=== PATIENT | female | born 1960 | race Caucasian/White ===

== ENCOUNTER 2021-03-24 16:12 | Emergency (ER) | payer BC ==
--- OUTSIDE RECORDS SUMMARY | 2021-03-24 16:15 | XMS REPORT | Continuity of Care Document ---
:1960 Author Organization [facility] t Address [address] [place] [address] [place] [id number] Care Team Providers Name Role Phone Unavailable Unavailable Unavailable Problems This patient has no known problems. Allergies, Adverse Reactions, Alerts This patient has no known allergies or adverse reactions. Medications Ordered Filled Start Stop Current Ordering Indication Dosage Frequency Signature Comments Components Source Medication Medication Date Date Medication? Clinician (SIG) Name Name Atorvastati Atorvastati 2018-0 Yes Georgina [address] [facility] Calcium n Calcium 2-20 [facility] Lexapro Lexapro Yes Georgina [address] [facility] Synthroid Synthroid Yes Georgina [address] [facility] on an [facility] empty [facility] stomach in l the [facility] morning ent [facility] Multivitami Multivitami Yes Georgina [address] [facility] n [facility] Alprazolam Alprazolam Yes Georgina [address] [facility] Effexor Effexor Yes Georgina not [facility] defined [facility] Calcium + D Calcium + D Yes Georgina not [facility] Acyclovir Acyclovir Yes Georgina [address] [facility] Loratadine Loratadine Yes Georgina [address] [facility] Sudafed Sudafed Yes Georgina [address] [facility] as needed [facility] Amoxicillin Amoxicillin Yes Georgina [address] [facility]Pot -Pot [facility] Immunizations Ordered Filled Immunization Date Status Comments Sour e Immunization Name Name TDAP > 7 TDAP > 7 2018-09-[address] [facility] 00:00:00 [facility] Procedures This patient has no known procedures. Encounters Start End Encounter Admission Attending Care Care Encounter Source Date/Time Date/Time Type Type Clinicians Facility Department ID 2020-07-20 2020-07-20 Outpatient [facility] [id number] [facility] 2020-07-12 2020-07-12 Out[facility] [id number] [facility] 2020-06-13 2020-06-13 [facility] [id number] [facility] 2020-05-31 2020-05-31 [facility] [id number] [facility] 2020-05-23 2020-05-23 [facility] [id number] [facility] 2020-05-17 2020-05-17 [facility] [id number] [facility] 2020-02-19 2020-02-19 [facility] [id number] [facility] 16[facility]40[facility]00 16:40:00 [facility] Medicine Outpati ent Clinics 2020-02-11 2020-02-11 [facility] [id number] [facility] 08[facility]16:00 08:16:00 [facility] Medicine Outpati ent Clinics 2019-10-08 2019-10-08 [facility] [id number] [facility] 09[facility]02:00 09:02:00 t [facility] Medicine Outpati ent Clinics 2019-04-23 2019-04-23 [facility] [id number] [facility] 15:00:00 15:00:00 [facility] Medicine Outpati ent Clinics 2018-11-10 2018-11-10 [facility] [id number] 14:57:00 14:57:00 t [facility] Medicine Medicine Outpati ent Clinics 2018-10-22 2018-10-22 [facility] [id number] [facility] 08:00[facility]00 08:00:00 [facility] Medicine Outpati ent Clinics 2018-09-25 2018-09-25 [facility] [id number] [facility] 14:48:00 14:48:00 t [facility] Medicine l Medicine Outpati ent Clinics 2018-09-09 2018-09-09 [facility] [id number] [facility] 09:00:00 09:00:00 [facility] Medicine Outpati ent Clinics 2018-04-25 2018-04-25 [facility] [id number] [facility] 08:45:00 08:45:00 t [facility] Medicine Medicine Outpati ent Clinics 2018-03-05 2018-03-05 [facility] [id number] [facility] 09:12:00 09:12:00 t [facility] Medicine Outpati ent Clinics 2018-03-03 2018-03-03 [facility] [id number] [facility] 11:19:00 11:19:00 [facility] Medicine Outpati ent Clinics 2018-02-24 2018-02-24 [facility] [id number] [facility] 10:45:00 10:45:00 [facility] Medicine Outpati ent Clinics Results This patient has no known results.
--- NOTE | 2021-03-24 18:15 | RAD REPORT ---
EXAM DESCRIPTION: RAD - Knee Right 3 View - 03/24/2021 6:08 pm CLINICAL HISTORY: Right knee pain status post injury FINDINGS: Mildly depressed fracture of the lateral tibial plateau. No dislocation 2.2 centimeter sclerotic density distal right femur could represent an enchondroma or infarct. Follow -up x-ray 3 months recommended to assess stability
[2021-03-24] MEDS ORDERED: MORPHINE 4 MG/ML SYR ONE (21:10)
[2021-03-24] MEDS ORDERED: ONDANSETRON 4 MG/2 ML VIAL ONE (21:10)
[2021-03-24] MEDS ORDERED: NA CHLORIDE 0.9% 500 ML ONE (21:10)
[2021-03-24] MEDS ORDERED: FENTANYL CITR 100 MCG/2 ML ONE ×2 (21:21→21:39)
--- NOTE | 2021-03-24 21:46 | RAD REPORT ---
EXAM DESCRIPTION: Veronica Sosa Cont03/24/2021 9:33 pm CLINICAL HISTORY: Right knee pain status post injury COMPARISON: March 24, 2021 x-ray TECHNIQUE: Computed axial tomography of the right knee was obtained with coronal and sagittal recons truction. All CT scans are performed using dose optimization technique as appropriate and may include automated exposure control or mA/KV adjustment according to patient size. FINDINGS: Mildly depressed fracture lateral tibial plateau. No dislocation Large hemarthrosis Mild lateral subluxation of the tibia on the femur 2.8 centimeter sclerotic density distal femur IMPRESSION: Mildly depressed fracture lateral tibial plateau 2.8 centimeter sclerotic density distal left femur may represent an enchondroma or infarct. Follow-up x-ray in 3 months recommended to assess stability
--- NOTE | 2021-03-24 22:17 | ER ---
Nurse's Notes [facility] Name: Guera Pineda Age: 61 yrs Sex: Female : 1960 Arrival Date: 03/24/2021 Time: 16:16 Bed DIS11 Private MD: Diagnosis: Right Knee Tibial Plateau Fracture Presentation: 03/24 17:03 Chief complaint: Patient states: missed a step this morning and fell. Pt c/o right knee aa5 pain, unable to bear weight. Coronavirus screen: At this time, the client does not indicate any symptoms associated with coronavirus-19. Ebola Screen: Patient negative for fever greater than or equal to 101.5 degrees Fahrenheit, and additional compatible Ebola Virus Disease symptoms. Initial Sepsis Screen: Does the patient meet any 2 criteria? No. Patient's initial sepsis screen is negative. Does the patient have a suspected source of infection? No. Patient's initial sepsis screen is negative. Risk Assessment: Do you want to hurt yourself or someone else? Patient reports no desire to harm self or others. Onset of symptoms was March 24, 2021. 17:03 Method Of Arrival: Wheelchair aa5 17:03 Acuity: HOLLIE 4 aa5 Historical: - Allergies: 17:02 No Known Allergies; aa5 - PMHx: 17:02 None; aa5 - PSHx: 17:02 left ankle; right wrist; Hemorrhoidectomy; tubal ligation; aa5 - Immunization history:: Client reports having NOT received the Covid vaccine. - Social history:: Smoking status: Patient reports the use of cigarette tobacco products, smokes one pack cigarettes per day. Screenin:00 Abuse screen: Denies threats or abuse. Nutritional screening: No deficits noted. em Tuberculosis screening: No symptoms or risk factors identified. Fall Risk None identified. Assessment: 20:55 General: Appears uncomfortable, Behavior is cooperative, restless. Pain: Complains of em pain in right knee. Neuro: Level of Consciousness is awake, alert, obeys commands, Oriented to person, place, time, situation, Appropriate for age. Cardiovascular: Capillary refill < 3 seconds Patient's skin is warm and dry. Respiratory: Airway is patent Respiratory effort is even, unlabored, Respiratory pattern is regular, symmetrical. Derm: Skin is intact, is healthy with good turgor, Skin is pink, warm \T\ dry. Musculoskeletal: Range of motion: limited in right knee Swelling present in right knee. 21:15 Reassessment: pain unchanged, provider notified Patient states symptoms have not em improved. 22:45 Reassessment: Patient appears in no apparent distress at this time. Patient and/or em family updated on plan of care and expected duration. Pain level reassessed. Patient is alert, oriented x 3, equal unlabored respirations, skin warm/dry/pink. Patient states feeling better. Patient states symptoms have improved. Vital Signs: 17:03 BP 110 / 66; Pulse 64; Resp 16 S; Temp 98.3(O); Pulse Ox 100% on R/A; Weight 79.38 kg aa5 (R); Height 4 ft. 11 in. (149.86 cm) (R); Pain 8/10; 21:00 BP 108 / 72; Pulse 56; Resp 18; Pulse Ox 100% on R/A; em 17:03 Body Mass Index 35.35 (79.38 kg, 149.86 cm) aa5 ED Course: 16:16 Patient arrived in ED. mr 17:03 Arm band placed on. aa5 17:04 Triage completed. aa5 18:08 Knee Right 3 View XRAY In Process Unspecified. EDMS 20:33 Frank Santos PA is PHCP. cp 20:33 Terri Weaver MD is Attending Physician. cp 20:44 Christian Harris, PARUL is Primary Nurse. em 20:55 Inserted saline lock: 22 gauge in left antecubital area, using aseptic technique. em 21:00 Patient has correct armband on for positive identification. em 22:14 Lebron Whitaker MD is Attending Physician. cp 22:15 Ruben South MD is Referral Physician. cp 22:45 No provider procedures requiring assistance completed. IV discontinued, intact, em bleeding controlled, No redness/swelling at site. Pressure dressing applied. Knee immobilizer applied on right knee. Administered Medications: 20:55 Drug: NS 0.9% 500 ml Route: IV; Rate: bolus; Site: left antecubital; em 22:50 Follow up: IV Status: Completed infusion; IV Intake: 500ml em 21:00 Drug: Zofran (Ondansetron) 4 mg Route: IVP; Site: left antecubital; em 21:15 Follow up: Response: No adverse reaction em 21:02 Not Given (Physician Discretion): morphine 4 mg IVP once; RASS on ADMIN: Combtv4, Very em Agttd3, Agttd2, Rstlss1, AlertClm0, Drwsy-1, Lt Sdtn-2, Mod Sdtn-3, Dp Sdtn-4, UnArsble-5 21:03 Drug: fentaNYL (PF) 50 mcg Route: IVP; Site: left antecubital; em 21:15 Follow up: Response: No adverse reaction; Pain is unchanged, physician notified em 21:16 Drug: fentaNYL (PF) 25 mcg Route: IVP; Site: left antecubital; em 22:05 Follow up: Response: No adverse reaction; No change in condition; Pain is unchanged, em physician notified 22:09 Drug: HYDROcodone-acetaminophen 10 mg-325 mg 1 tabs Route: PO; em 22:47 Follow up: Response: No adverse reaction; Marked relief of symptoms; Pain is decreased; em RASS: Alert and Calm (0) Intake: 22:50 IV: 500ml; Total: 500ml. em Outcome: 22:16 Discharge ordered by MD. cp 22:49 Discharged to home via wheelchair, with family. em 22:49 Condition: stable 22:49 Discharge instructions given to patient, family, Instructed on discharge instructions, follow up and referral plans. medication usage, Demonstrated understanding of instructions, follow-up care, medications, Prescriptions given X 2. 22:50 Patient left the ED. em Signatures: Dispatcher [employer] Domi Turpin Edgar, RN RN em Raine Kamara RN RN aa5 Frank Santos PA PA cp
--- NOTE | 2021-03-24 22:17 | EDPHYS ---
Physician Documentation [facility] Name: Guera Pineda Age: 61 yrs Sex: Female : 1960 Arrival Date: 03/24/2021 Time: 16:16 Bed DIS11 Private MD: ED Physician Lebron Whitaker HPI: 03/24 20:40 This 61 yrs old Female presents to ER via Wheelchair with complaints of Fall cp Injury. 20:40 The patient presents with decreased range of motion, an injury, swelling, tenderness. cp 20:40 The complaints affect the right knee. Context: The problem was sustained at home, cp resulted from the patient falling, down stairs, the patient is not able to bear weight, the patient is not able to ambulate. Onset: The symptoms/episode began/occurred this morning. Associated signs and symptoms: The patient has no apparent associated signs or symptoms. Details of fall: The patient fell from an upright position, while walking. Historical: - Allergies: 17:02 No Known Allergies; aa5 - PMHx: 17:02 None; aa5 - PSHx: 17:02 left ankle; right wrist; Hemorrhoidectomy; tubal ligation; aa5 - Immunization history:: Client reports having NOT received the Covid vaccine. - Social history:: Smoking status: Patient reports the use of cigarette tobacco products, smokes one pack cigarettes per day. ROS: 20:45 MS/extremity: Positive for injury or acute deformity, decreased range of motion, pain, cp swelling, tenderness, of the right knee. 20:45 Constitutional: Negative for body aches, chills, fever, poor PO intake. cp 20:45 Respiratory: Negative for cough, shortness of breath, wheezing. 20:45 Abdomen/GI: Negative for abdominal pain, nausea, vomiting, and diarrhea, constipation. 20:45 Neuro: Negative for altered mental status, headache, loss of consciousness, syncope, weakness. 20:45 Cardiovascular: Negative for chest pain, palpitations. cp 20:45 All other systems are negative. cp Exam: 20:50 Constitutional: The patient appears in no acute distress, alert, awake, cp non-diaphoretic, non-toxic, well developed, well nourished, in obvious pain, uncomfortable. 20:50 Head/Face: Normocephalic, atraumatic. cp 20:50 Eyes: Periorbital structures: appear normal, Conjunctiva: normal, no exudate, no injection, Sclera: no appreciated abnormality, Lids and lashes: appear normal, bilaterally. 20:50 Neck: C-spine: vertebral tenderness, is not appreciated, crepitus, is not appreciated, ROM/movement: is normal, is supple, without pain, no range of motions limitations. 20:50 Chest/axilla: Inspection: normal, Palpation: is normal, no crepitus, no tenderness. 20:50 Cardiovascular: Rate: normal, Rhythm: regular, Edema: is not appreciated. 20:50 Respiratory: the patient does not display signs of respiratory distress, Respirations: normal, no use of accessory muscles, no retractions, labored breathing, is not present, Breath sounds: are clear throughout, no decreased breath sounds, no stridor, no wheezing. 20:50 Abdomen/GI: Inspection: abdomen appears normal, Palpation: abdomen is soft and non-tender, in all quadrants. 20:50 Back: pain, is absent, ROM is normal, vertebral tenderness, is not appreciated. 20:50 Musculoskeletal/extremity: Extremities: grossly normal except: noted in the right knee: decreased ROM, pain, swelling, tenderness, ROM: limited passive range of motion due to pain, in the right knee, Perfusion: the extremity is normally perfused throughout, the right knee Severe pain noted. 20:50 Neuro: Orientation: to person, place \T\ time. Mentation: is normal. Vital Signs: 17:03 BP 110 / 66; Pulse 64; Resp 16 S; Temp 98.3(O); Pulse Ox 100% on R/A; Weight 79.38 kg aa5 (R); Height 4 ft. 11 in. (149.86 cm) (R); Pain 8/10; 21:00 BP 108 / 72; Pulse 56; Resp 18; Pulse Ox 100% on R/A; em 17:03 Body Mass Index 35.35 (79.38 kg, 149.86 cm) aa5 Procedures: 22:20 Splinting: Splint applied to right knee using knee immobilizer, applied by nurse. cp Examined by me, post splint application: neurovascular intact, Patient tolerated well. MDM: 20:39 Patient medically screened. cp 22:15 Data reviewed: vital signs, nurses notes, radiologic studies, CT scan, plain films. cp 22:15 Test interpretation: by ED physician or midlevel provider: plain radiologic studies. cp Counseling: I had a detailed discussion with the patient and/or guardian regarding: the historical points, exam findings, and any diagnostic results supporting the discharge/admit diagnosis, radiology results, the need for outpatient follow up, a orthopedic surgeon, to return to the emergency department if symptoms worsen or persist or if there are any questions or concerns that arise at home. Response to treatment: the patient's symptoms have markedly improved after treatment. ED course: VSS. Pain markedly improved with meds. Discussed radiology results and need for ortho f/u. Will discharge to home for continued monitoring. 03/24 17:04 Order name: Knee Right 3 View XRAY; Complete Time: 21:47 aa5 03/24 21:05 Order name: Knee Right Wo Cont; Complete Time: 21:47 EDMS 03/24 20:34 Order name: IV; Complete Time: 20:55 cp 03/24 21:48 Order name: Knee Immobilizer; Complete Time: 22:46 cp Administered Medications: 20:55 Drug: NS 0.9% 500 ml Route: IV; Rate: bolus; Site: left antecubital; em 22:50 Follow up: IV Status: Completed infusion; IV Intake: 500ml em 21:00 Drug: Zofran (Ondansetron) 4 mg Route: IVP; Site: left antecubital; em 21:15 Follow up: Response: No adverse reaction em 21:02 Not Given (Physician Discretion): morphine 4 mg IVP once; RASS on ADMIN: Combtv4, Very em Agttd3, Agttd2, Rstlss1, AlertClm0, Drwsy-1, Lt Sdtn-2, Mod Sdtn-3, Dp Sdtn-4, UnArsble-5 21:03 Drug: fentaNYL (PF) 50 mcg Route: IVP; Site: left antecubital; em 21:15 Follow up: Response: No adverse reaction; Pain is unchanged, physician notified em 21:16 Drug: fentaNYL (PF) 25 mcg Route: IVP; Site: left antecubital; em 22:05 Follow up: Response: No adverse reaction; No change in condition; Pain is unchanged, em physician notified 22:09 Drug: HYDROcodone-acetaminophen 10 mg-325 mg 1 tabs Route: PO; em 22:47 Follow up: Response: No adverse reaction; Marked relief of symptoms; Pain is decreased; em RASS: Alert and Calm (0) Disposition: 22:30 Chart complete. cp 03/25 06:53 Co-signature as Attending Physician, Lebron Whitaker MD. [email or web address] Disposition Summary: 03/24/21 22:16 Discharge Ordered Location: Home cp Problem: new cp Symptoms: have improved cp Condition: Stable cp Diagnosis - Right Knee Tibial Plateau Fracture cp Followup: cp - With: Ruben South MD - When: 2 - 3 days - Reason: Recheck today's complaints Discharge Instructions: - Discharge Summary Sheet cp - Nondisplaced Tibial Plateau Fracture cp Forms: - Medication Reconciliation Form cp - Thank You Letter cp - Antibiotic Education cp - Prescription Opioid Use cp Prescriptions: - Ibuprofen 800 mg Oral Tablet - take 1 tablet by ORAL route every 8 hours As needed take with food; 30 tablet; cp Refills: 0, Product Selection Permitted - Tylenol-Codeine #3 300 mg-30 mg Oral - take 2 tablet by ORAL route every 6-8 hours; 30 tablet; Refills: 0, Product cp Selection Permitted Signatures: Dispatcher [employer] Christian Moore RN Alexa White RN Raine Etienne RN RN aa5 Frank Santos PA PA cp Lebron Whitaker MD MD [email or web address] Corrections: (The following items were deleted from the chart) 03/24 21:05 20:38 CT RIGHT KNEE WO CONTRAST ordered. EDMS EDMS 22:46 21:48 Crutches ordered. cp em 03/25 21:19 03/24 20:45 All other systems are negative, cp cp
[2021-03-24] MEDS ORDERED: HYDROCODONE/APAP 10/325 TAB ONE (22:29)
[2021-03-24 22:55] VITALS: TEMP 98.3; O2SAT 100
[2021-03-24 22:56] VITALS: BP 108/72
== END 2021-03-24 22:50 | disposition home or self-care (01) ==
LOC: ER 16:12
DX: S82.141A Displaced bicondylar fracture of right tibia, initial encounter for closed fracture (principal); W18.30XA Fall on same level, unspecified, initial encounter; Y93.01 Activity, walking, marching and hiking; F17.210 Nicotine dependence, cigarettes, uncomplicated
CPT/HCPCS: 96361; 73700; 73562; 96375; 96374; 99284; J3010 ×2; J7040; J2405